=== PATIENT | female | born 1990 ===

== ENCOUNTER 2020-02-02 20:28 | Outpatient (REF) | payer MEDICAID, SELFPAY ==
[2020-02-02 22:39] LABS: TSH (W/Ref FT4) 1.56 uIU/mL (0.36-3.74)
== END 2020-02-02 20:48 ==
LOC: NCHCN 20:28
PROVIDERS: Visit Provider Nurse Practitioner Community Health
DX: L63.9 Alopecia areata, unspecified (principal)
CPT/HCPCS: 84443